=== PATIENT | male | born 1980 | race Two or more races ===

== ENCOUNTER 2020-10-23 16:25 | Emergency (ER) | payer OTHER ==
[~2020-10-23] VITALS: Ht 185.4 cm; Wt 80.7 kg
--- NOTE | 2020-10-23 17:09 | NUR ---
SEEN AND EXAMINED BY .
--- NOTE | 2020-10-23 17:36 | NUR ---
ER PHLEB AT BEDSIDE FOR BLOOD DRAW.
[2020-10-23 17:46] LABS: MONOCYTES # (AUTO) 0.6 /CMM (0.1-1.30); NEUTROPHILS # (AUTO) 5.5 /CMM (1.8-8.9)
[2020-10-23 17:49] LABS: BASOPHILS % (AUTO) 0.3 % (0.0-2.0); EOSINOPHILS % (AUTO) 1.4 % (0.0-6.0); HEMATOCRIT 43 % (39-51); HEMOGLOBIN 14.2 g/dL (13.5-17.5); LYMPHOCYTES # (AUTO) 1.6 /CMM (0.8-4.8); LYMPHOCYTES % (AUTO) 20.5 % (20.0-44.0); MEAN CORPUSCULAR HGB CONC 34 g/dl (31.0-36.0); MEAN CORPUSCULAR VOLUME 98 fL (80-96); MONOCYTES % (AUTO) 7.5 % (2.0-12.0); NEUTROPHILS % (AUTO) 70.3 % (43.0-81.0); PLATELET COUNT (AUTO) 290 /CMM (150-450); RED BLOOD CELL COUNT(AUTO) 4.31 MIL/uL (4.5-6.0); WHITE BLOOD COUNT (AUTO) 7.8 K/uL (4.3-11.0)
[2020-10-23 17:52] VITALS: BP 135/77
--- NOTE | 2020-10-23 17:54 | NUR ---
Patient came in to the er c/o +SI "i want to cut myself". On room air, breathing evenly and unlabored. Kept comfortable, will continue to monitor accordingly.
[2020-10-23 18:11] LABS: CALCIUM, SERUM 9.7 mg/dL (8.5-10.1); CARBON DIOXIDE 25 mmol/L (21-32); CHLORIDE 103 mmol/L (98-107); GLUCOSE 209 mg/dL (74-106); SODIUM SERUM 139 mmol/L (136-145); UREA NITROGEN, BLOOD 22 mg/dL (7-18)
[2020-10-23 18:13] LABS: BILIRUBIN,URINE Negative (NEGATIVE); COLOR,URINE DARK YELLOW (YELLOW); LEUKOCYTE ESTERASE ,URINE Negative (NEGATIVE); NITRITE, URINE Negative (NEGATIVE); PROTEIN,URINE >=300 mg/dl (NEGATIVE); UGLUCOSE >=1000 mg/dL (NEGATIVE); UROBILINOGEN,URINE 0.2 EU/dL (0.2)
[2020-10-23 18:25] LABS: BACTERIA,URINE None seen /HPF (None Seen); SQUAMOUS EPITHELIAL CELL,UR Few /HPF (None Seen); WBC,URINE 0-2 /HPF (0-3)
[2020-10-23 18:26] LABS: ALANINE AMINOTRANSFERASE 56 U/L (12-78); ALBUMIN 3.7 g/dL (3.4-5.0); ALCOHOL, BLOOD < 3 mg/dL (0-0); ALKALINE PHOSPHATASE 76 U/L (46-116); ASPARTATE AMINOTRANSFERASE 21 U/L (15-37); BILIRUBIN,DIRECT 0.1 mg/dL (0.0-0.2); BILIRUBIN,TOTAL 0.5 mg/dL (0.2-1.0); TOTAL PROTEIN, SERUM 7.6 g/dL (6.4-8.2)
[2020-10-23 18:28] LABS: ACETAMINOPHEN < 0 ug/ml (10-30)
[2020-10-23] MEDS ORDERED: METFORMIN 850 MG TABLET PO ONE (19:00)
[2020-10-23] MEDS ORDERED: METFORMIN 850 MG TABLET ONE (19:02)
--- NOTE | 2020-10-23 19:27 | NUR ---
CLINICAL AND FACESHEET FAXED TO [facility] FOR VOLUNTARY PSYCH ADMISSION.
--- NOTE | 2020-10-23 21:16 | NUR ---
TRANSFER INFO: PT ACCEPTED AT [facility] DEYANIRA LORENZO ACCEPTING MD ROJO PHONE NUMBER FOR REPORT PT WILL GO TO UNIT 2
--- NOTE | 2020-10-23 21:23 | NUR ---
TRAY ANDERSON FROM [id number] PT WILL BE PICKED UP FOR TRANSPORT TO [facility] ETA 1 HOUR VIA [facility].
--- NOTE | 2020-10-23 22:06 | NUR ---
BG 310, ER AWARE. WILL ORDER 6 UNITS OF INSULIN.
[2020-10-23] MEDS ORDERED: INSULIN REGULAR, HUMAN 100 UNIT/ML 10 ML VIAL ONE (22:07)
--- NOTE | 2020-10-23 22:21 | NUR ---
REPORT GIVEN TO STEFFEN DURON FOR NATY
[2020-10-23] MEDS ORDERED: INSULIN REGULAR, HUMAN 100 UNIT/ML 10 ML VIAL SQ ONE (22:30)
== END 2020-10-23 22:31 ==
LOC: ER 16:29
DX: R45.851 Suicidal ideations (principal); F31.9 Bipolar disorder, unspecified; Z91.14 Patient's other noncompliance with medication regimen; I10 Essential (primary) hypertension; Z90.49 Acquired absence of other specified parts of digestive tract; E11.9 Type 2 diabetes mellitus without complications; Z79.4 Long term (current) use of insulin; Z20.822 Contact with and (suspected) exposure to COVID-19
CPT/HCPCS: 36415; 80048; 80076; 80299; 80307; 80320; 81001; 82962; 85025; 87426; 96372; 99285; C9803; J1815; G0480

== ENCOUNTER 2020-11-02 12:21 | Emergency (ER) | payer OTHER ==
[~2020-11-02] VITALS: Ht 185.4 cm; Wt 80.7 kg
--- NOTE | 2020-11-02 12:42 | NUR ---
pt self presents to ed ambulatory w. steady gait c/o hearing voices telling him to "cut" himself. [facility] denies hi. pt is cooperative to staff. stable vitals. 1:1 sitter at bedside. awaiting md wesley.
--- NOTE | 2020-11-02 13:00 | NUR ---
dr roberson at bedsides for eval.
[2020-11-02 13:14] LABS: BILIRUBIN,URINE Negative (NEGATIVE); LEUKOCYTE ESTERASE ,URINE Negative (NEGATIVE); NITRITE, URINE Negative (NEGATIVE); PROTEIN,URINE Negative (NEGATIVE); UGLUCOSE 500 MG/DL mg/dL (NEGATIVE); UROBILINOGEN,URINE 0.2 EU/dL (0.2)
--- NOTE | 2020-11-02 13:16 | NUR ---
r and d lab technician at bedside for blood draw.
[2020-11-02 13:18] LABS: COLOR,URINE LIGHT YELLOW (YELLOW)
[2020-11-02 13:25] LABS: BASOPHILS # (AUTO) 0.1 /CMM (0.0-0.2); BASOPHILS % (AUTO) 1.2 % (0.0-2.0); EOSINOPHILS % (AUTO) 2.8 % (0.0-6.0); HEMATOCRIT 36 % (39-51); HEMOGLOBIN 12.1 g/dL (13.5-17.5); LYMPHOCYTES # (AUTO) 1.1 /CMM (0.8-4.8); LYMPHOCYTES % (AUTO) 20.1 % (20.0-44.0); MEAN CORPUSCULAR HGB CONC 34 g/dl (31.0-36.0); MEAN CORPUSCULAR VOLUME 99 fL (80-96); MONOCYTES # (AUTO) 0.4 /CMM (0.1-1.30); MONOCYTES % (AUTO) 7.4 % (2.0-12.0); NEUTROPHILS # (AUTO) 3.7 /CMM (1.8-8.9); NEUTROPHILS % (AUTO) 68.5 % (43.0-81.0); PLATELET COUNT (AUTO) 218 /CMM (150-450); RED BLOOD CELL COUNT(AUTO) 3.62 MIL/uL (4.5-6.0); WHITE BLOOD COUNT (AUTO) 5.4 K/uL (4.3-11.0)
[2020-11-02 13:37] LABS: ALANINE AMINOTRANSFERASE 25 U/L (12-78); ALBUMIN 3.1 g/dL (3.4-5.0); ALCOHOL, BLOOD < 3 mg/dL (0-0); ALKALINE PHOSPHATASE 103 U/L (46-116); ASPARTATE AMINOTRANSFERASE 21 U/L (15-37); BILIRUBIN,TOTAL 0.2 mg/dL (0.2-1.0); CALCIUM, SERUM 8.9 mg/dL (8.5-10.1); CARBON DIOXIDE 29 mmol/L (21-32); CHLORIDE 103 mmol/L (98-107); CREATININE 1.2 mg/dL (0.6-1.3); POTASSIUM 5.1 mmol/L (3.5-5.1); SODIUM SERUM 138 mmol/L (136-145); TOTAL PROTEIN, SERUM 6.4 g/dL (6.4-8.2); UREA NITROGEN, BLOOD 25 mg/dL (7-18)
[2020-11-02 13:42] LABS: GLUCOSE 359 mg/dL (74-106)
[2020-11-02 14:01] LABS: ACETAMINOPHEN 0 ug/ml (10-30)
[2020-11-02] MEDS ORDERED: INSULIN REGULAR, HUMAN 100 UNIT/ML 10 ML VIAL ONE (14:19)
[2020-11-02] MEDS ORDERED: DEXTROSE 50%-WATER 50 ML DISP.SYRIN IV PRN (14:30)
[2020-11-02] MEDS ORDERED: INSULIN REGULAR, HUMAN 100 UNIT/ML 3 ML VIAL SQ PRN (14:30)
[2020-11-02] MEDS ORDERED: BLOOD SUGAR DIAGNOSTIC 1 EACH STRIP IN SCH (15:00)
--- NOTE | 2020-11-02 16:27 | NUR ---
facesheet and clinicals faxed over to [facility].
--- NOTE | 2020-11-02 17:50 | NUR ---
REPORT GIVEN TO PHILIPPE ESTES AT [facility]. AWAITNG TRANSFER.
[2020-11-02 17:54] VITALS: BP 125/66
--- NOTE | 2020-11-02 17:59 | NUR ---
CALLED [facility] [phone] SPOKE TO LA. BLS TRANSFER ETA IS 8PM.
--- NOTE | 2020-11-02 19:21 | NUR ---
TRANSPORTED TO [facility] IN STABLE CONDITION.
== END 2020-11-02 19:24 ==
LOC: ER 12:24
DX: F29 Unspecified psychosis not due to a substance or known physiological condition (principal); E11.9 Type 2 diabetes mellitus without complications; Z79.4 Long term (current) use of insulin; Z20.822 Contact with and (suspected) exposure to COVID-19
CPT/HCPCS: 36415; 80048; 80076; 80299; 80307; 80320; 81003; 82962; 85025; 87426; 96372; 99285; C9803; J1815 ×2; G0480

== ENCOUNTER 2020-11-09 09:04 | Emergency (ER) | payer OTHER ==
[~2020-11-09] VITALS: Ht 188 cm; Wt 97.5 kg
--- NOTE | 2020-11-09 09:23 | NUR ---
BIBSELF FOR SI, -HI. " I'M HEARING VOICES TO CUT MY WRIST & I RAN OUT OF MEDS ". PT AAOX4, VSS. RR EVEN & UNLABORED. DENIES CP, SOB, DIZZINESS, N/V AT THIS TIME. PT SEEN & EVAL'D BY DR. VELA. SITTER AT & WILL CONT TO MONITOR.
[2020-11-09 09:29] LABS: BASOPHILS # (AUTO) 0.1 /CMM (0.0-0.2); BASOPHILS % (AUTO) 0.5 % (0.0-2.0); EOSINOPHILS % (AUTO) 2.2 % (0.0-6.0); HEMATOCRIT 39 % (39-51); HEMOGLOBIN 12.6 g/dL (13.5-17.5); LYMPHOCYTES # (AUTO) 1.8 /CMM (0.8-4.8); LYMPHOCYTES % (AUTO) 18.5 % (20.0-44.0); MEAN CORPUSCULAR HGB CONC 33 g/dl (31.0-36.0); MEAN CORPUSCULAR VOLUME 100 fL (80-96); MONOCYTES # (AUTO) 0.7 /CMM (0.1-1.30); MONOCYTES % (AUTO) 7.4 % (2.0-12.0); NEUTROPHILS # (AUTO) 6.8 /CMM (1.8-8.9); NEUTROPHILS % (AUTO) 71.4 % (43.0-81.0); PLATELET COUNT (AUTO) 213 /CMM (150-450); RED BLOOD CELL COUNT(AUTO) 3.87 MIL/uL (4.5-6.0); WHITE BLOOD COUNT (AUTO) 9.6 K/uL (4.3-11.0)
[2020-11-09 10:32] LABS: BILIRUBIN,URINE Negative (NEGATIVE); COLOR,URINE YELLOW (YELLOW); LEUKOCYTE ESTERASE ,URINE Negative (NEGATIVE); NITRITE, URINE Negative (NEGATIVE); PROTEIN,URINE Negative (NEGATIVE); UGLUCOSE >=1000 mg/dL (NEGATIVE); UROBILINOGEN,URINE 0.2 EU/dL (0.2)
[2020-11-09 10:34] LABS: BACTERIA,URINE Rare /HPF (None Seen); RBC,URINE 0-2 /HPF (0-2); SQUAMOUS EPITHELIAL CELL,UR Rare /HPF (None Seen); WBC,URINE 0-2 /HPF (0-3)
[2020-11-09 11:27] LABS: ALANINE AMINOTRANSFERASE 36 U/L (12-78); ALBUMIN 3.3 g/dL (3.4-5.0); ALCOHOL, BLOOD < 3 mg/dL (0-0); ALKALINE PHOSPHATASE 132 U/L (46-116); ASPARTATE AMINOTRANSFERASE 22 U/L (15-37); BILIRUBIN,DIRECT 0.1 mg/dL (0.0-0.2); BILIRUBIN,TOTAL 0.2 mg/dL (0.2-1.0); CARBON DIOXIDE 25 mmol/L (21-32); CHLORIDE 103 mmol/L (98-107); CREATININE 1.2 mg/dL (0.6-1.3); GLUCOSE 275 mg/dL (74-106); POTASSIUM 5.3 mmol/L (3.5-5.1); SODIUM SERUM 137 mmol/L (136-145); TOTAL PROTEIN, SERUM 6.7 g/dL (6.4-8.2); UREA NITROGEN, BLOOD 37 mg/dL (7-18)
[2020-11-09 11:31] LABS: ACETAMINOPHEN < 10 ug/ml (10-30)
--- NOTE | 2020-11-09 12:28 | NUR ---
PT SITTING UP, WATCHING TV. CALM & COOPERATIVE, NAD NOTED AT THIS TIME. WILL CONT TO MONITOR. SITTER AT BS.
[2020-11-09] MEDS ORDERED: QUETIAPINE FUMARATE 100 MG TABLET PO STA (13:00)
[2020-11-09] MEDS ORDERED: INSULIN REGULAR, HUMAN 100 UNIT/ML 10 ML VIAL ONE (13:24)
[2020-11-09] MEDS ORDERED: INSULIN REGULAR, HUMAN 100 UNIT/ML 10 ML VIAL SQ ONE (13:30)
--- NOTE | 2020-11-09 13:34 | NUR ---
PT WAS PROVIDED WITH A MEAL.
--- NOTE | 2020-11-09 14:45 | NUR ---
FAXED FACESHEET AND CLINICALS TO [facility]
--- NOTE | 2020-11-09 14:51 | NUR ---
"Judi Alvarez SS Consult: SS Consult requested for SI w/plan. The pt. is a 40-year old male. SW met with pt. bedside. The pt. was sleeping but rousable to verbal cues. Pt. is alert & oriented x 4 and not making appropriate eye contact (eyes closed). Patient in drowsy. The pt. appears unkempt and is malodorous. Pt. stated that he has been experiencing homelessness for the past 2 months. Per pt. he has been staying on the streets Pt. is ambulatory. Pt. stated he received food stamps and no other financial assistance. Patient denies using any drugs or ETOH. Pt. tested positive for Cannabinoids. Per pt. his support system includes his cousin, Rashard Byrne [phone]. CATHY explored pt.s Hx. of mental health. Pt. stated that he has never been diagnosed by a psychiatrist. Per patient he has taken Haldol, Buspar at previous voluntary psychiatric placements. However, pt. stated that he is currently experiencing visual hallucination: seeing people following him. Per pt. he is experiencing auditory hallucinations: hearing voices telling him to kill self. Pt. admits to SI w/plan to cut myself. Pt. admits HI: having thoughts of hurting others. Pt. with fair insight & poor judgement. CATHY offered pt. voluntary psychiatric treatment and pt. was agreeable. Plan: CATHY referred pt. to [facility] [[facility] [place] [address] ] for inpatient psychiatric treatment. CATHY faxed clinicals to FAX: [phone]. COVID test pending and will be faxed when available. Patient signed homeless waiver & it was placed in the pt.s chart. CATHY provided pt. with the following homeless resources & pt. was agreeable: Substance Abuse resources provided included: [facility] Substance Abuse Self-Helpline ([facility]) ; CRI -HELP [address] [facility]. [place] [id number] ; [address] [address] ; [facility] [address] [facility]. [place] [phone] ; [facility] [address] [facility] [address] ; [facility] Treatment Centers [address] [facility] [address] ; [facility] [address] [facility] [phone] ; [facility] Substance Abuse Helpline(S[facility] ; [facility] Family Counseling ; [facility]; [facility]; Cri-Help [place]; [facility] Shimon Tanamaude; [place]; [facility] [place]; [facility] [place]; [facility], [facility]. [place]; Alcoholics Anonymous -SFV; Uh-Qjbg-Ggocfcj ; Marijuana Anonymous -SFV; Narcotics Anonymous www.na.org; Year-round shelters: [facility] [address] [place] [address] ; [facility] [address] [place] [address]; [facility] [facility] Hizlgka[address] [facility] [address] Winter Shelters: Yao Sánchez Provider: [facility] [place] Address: [address], [address] # of Beds: 47 Population Served: Coed SPA 6 | [facility] Nafisa Leiva Princess Provider: Home at Last Address: [address] [facility], [address] # of Beds: 66 Population Served: [facility] Shavon Moore Provider: First to Serve Address: [address] [facility], [address] # of Beds: 56 Population Served: Lynnette Silas [place] Provider: /[facility] Address: [address] [facility], [address] # of Beds: 49 Population Served: [facility] SPA 8 | [facility] Provider: First to Serve Address: [address] [facility], [address] # of Beds: 37 Population Served: [facility] Hygiene: [facility]: [address] [facility] ; [facility] [address] [facility] ; [facility] 8780 [facility] . Food Resources: [facility] at [facility]- [address] [facility]; Meet Each Need with Dignity ([facility]) [address] [facility]; [facility] Food Pantry 4321 [facility]; [facility] [address] 8559 [facility]. Mental Health resources provided: [facility] [address] [place], [place] [phone] ; [facility] [address] [facility] [address], [place] [address] ; Sandra Mcpherson Replaced By [facility] [address] [place] [address] ; [facility] [address] [place], [place] [phone] Healthcare Clinics: [facility] [address] [facility], [address] [place]. [place] ; [facility] [address] [facility] [address] [place] [address]; [facility] [address] [address] [facility] [place] [address] [phone]) [phone] Counseling--Outpatient [facility] [address] [place], [place] [address] (Specializes in in-depth psychotherapy for emotional distress: anxiety, depression, interpersonal conflicts, life transitions, childhood abuse) [facility] [address] [place] [address] (Assist with solving problem marital difficulties, separation & divorce, aging parents, & grief, chronic & terminal illness) [facility] [address] [place] [address] (Deal with loss & grief, anxiety, marital difficulties) Homebound/Mental Health Services [address] [facility] [address] [place] [address] (Provide in-home mental services to people who are incapable of leaving their homes) Organization for Needs of the Elderly Senior Service/Resource Center [address] [place] [address] [facility] [address] [place] [address] PSYCHIATRIC OUTPATIENT SERVICES [facility] Partial Hospitalization and Intensive Outpatient Program (Managed Care and [place] Only)[address]. [facility] [phone] [facility] Partial Hospitalization and Outpatient Zxitwca[address] [place], [place] [phone] [facility] Partial Hospitalization and Outpatient Gteotxs9163 [facility]. [place], [place] [phone] [facility] Mental Health [place] Odr[address] [facility] [address] [place], [place] [phone] [facility] Partial Hospitalization and Outpatient Bxftrra18505 [facility] Shimon EisenbergLITTLE [place], [phone] "
--- NOTE | 2020-11-09 15:11 | NUR ---
CATHY received call from Florecita [phone] from [facility] asking for new lab as pt.'s Glucose levels must be below 250 to be accepted to [facility]. Noted. CATHY informed OLIVERIO Dong in ED. Updated Glucose levels and COVID-19 test results should be faxed to FAX#[phone] & [phone].
--- NOTE | 2020-11-09 17:18 | NUR ---
PT ACCEPTED TO [facility]. DR. ZAMAN AND DR. CARDONA. [phone].
--- NOTE | 2020-11-09 18:12 | NUR ---
CALLED [facility] FOR TRANSPORT TO [facility]. ETA [phone].
--- NOTE | 2020-11-09 18:53 | NUR ---
REPORT GIVEN TO ALONSO AT [place]. PT AWAITING TRANSPORT AMBULANCE.
[2020-11-09 19:30] VITALS: BP 131/66
--- NOTE | 2020-11-09 19:46 | NUR ---
[facility] IN FACILITY, REPORT GIVEN TO AMB STAFF. PAPERWORK GIVEN. ALL BELONGINGS WITH TRANSPORT.
--- NOTE | 2020-11-09 19:56 | NUR ---
pt left via [facility]. left in stable condition. vss. not in any distress
== END 2020-11-09 19:57 ==
LOC: ER 09:12
DX: F29 Unspecified psychosis not due to a substance or known physiological condition (principal); Z91.14 Patient's other noncompliance with medication regimen; R45.851 Suicidal ideations; F12.10 Cannabis abuse, uncomplicated; E11.65 Type 2 diabetes mellitus with hyperglycemia; E87.5 Hyperkalemia; Z20.822 Contact with and (suspected) exposure to COVID-19
CPT/HCPCS: 36415; 80048; 80076; 80299; 80307; 80320; 81001; 82962; 85025; 87426; 96372; 99285; C9803; J1815; G0480

== ENCOUNTER 2021-10-03 09:50 | Emergency (ER) | payer OTHER ==
[~2021-10-03] VITALS: Ht 188 cm; Wt 86.2 kg
--- NOTE | 2021-10-03 10:05 | NUR ---
TO ER BED 18, DEPRESSED, FEELING SUICIDAL, +PLAN TO "CUT SELF" WANTS VOL PSYCH ADMIT, AAOX3, BREATHING EVEN AND NON LABORED, REQUESTED FOR FOOD, AWAITING MD GUADALUPE
--- NOTE | 2021-10-03 10:30 | NUR ---
URINE COLLECTED AND SENT TO LAB
--- NOTE | 2021-10-03 10:31 | NUR ---
COVID SWAB DONE AND SENT TO LAB
--- NOTE | 2021-10-03 11:05 | NUR ---
LABORER WRECKING AND SALVAGING AT BEDSIDE FOR BLOOD DRAW
[2021-10-03 11:13] LABS: BASOPHILS % (AUTO) 0.5 % (0.0-2.0); EOSINOPHILS % (AUTO) 2.2 % (0.0-6.0); HEMATOCRIT 44 % (39-51); HEMOGLOBIN 14.8 g/dL (13.5-17.5); LYMPHOCYTES # (AUTO) 1.5 K/uL (0.8-4.8); LYMPHOCYTES % (AUTO) 22.4 % (20.0-44.0); MEAN CORPUSCULAR HGB CONC 34 g/dl (31.0-36.0); MEAN CORPUSCULAR VOLUME 98 fL (80-96); MONOCYTES # (AUTO) 0.4 K/uL (0.1-1.30); MONOCYTES % (AUTO) 6.1 % (2.0-12.0); NEUTROPHILS # (AUTO) 4.5 K/uL (1.8-8.9); NEUTROPHILS % (AUTO) 68.8 % (43.0-81.0); PLATELET COUNT (AUTO) 278 K/uL (150-450); RED BLOOD CELL COUNT(AUTO) 4.52 MIL/uL (4.5-6.0); WHITE BLOOD COUNT (AUTO) 6.5 K/uL (4.3-11.0)
[2021-10-03] MEDS ORDERED: LORAZEPAM 1 MG TABLET ONE (11:21)
[2021-10-03 11:27] LABS: ALANINE AMINOTRANSFERASE 45 U/L (12-78); ALBUMIN 3.5 g/dL (3.4-5.0); ALCOHOL, BLOOD < 3 mg/dL (0-0); ALKALINE PHOSPHATASE 169 U/L (46-116); ASPARTATE AMINOTRANSFERASE 12 U/L (15-37); BILIRUBIN,DIRECT 0.1 mg/dL (0.0-0.2); BILIRUBIN,TOTAL 0.3 mg/dL (0.2-1.0); CALCIUM, SERUM 8.8 mg/dL (8.5-10.1); CARBON DIOXIDE 28 mmol/L (21-32); CHLORIDE 94 mmol/L (98-107); CREATININE 1.1 mg/dL (0.6-1.3); POTASSIUM 5.1 mmol/L (3.5-5.1); SODIUM SERUM 130 mmol/L (136-145); TOTAL PROTEIN, SERUM 7.3 g/dL (6.4-8.2); UREA NITROGEN, BLOOD 14 mg/dL (7-18)
[2021-10-03] MEDS ORDERED: LORAZEPAM 1 MG TABLET PO ONE (11:30)
[2021-10-03 12:01] LABS: BILIRUBIN,URINE NEGATIVE (NEGATIVE); COLOR,URINE YELLOW (YELLOW); LEUKOCYTE ESTERASE ,URINE NEGATIVE (NEGATIVE); NITRITE, URINE NEGATIVE (NEGATIVE); PROTEIN,URINE 30 mg/dl (NEGATIVE); UGLUCOSE >=1000 mg/dL (NEGATIVE); UROBILINOGEN,URINE 0.2 EU/dL (0.2)
[2021-10-03 12:14] LABS: ACETAMINOPHEN 0 ug/ml (10-30); GLUCOSE 642 mg/dL (74-106)
[2021-10-03] MEDS ORDERED: IV NS 0.9% 1,000 ML BAG IV ONE (12:30)
[2021-10-03] MEDS: INSULIN LISPRO/ASPART 100 UNIT/ML CARTRIDGE SQ SCH ×2 (12:57→18:00)
[2021-10-03 13:11] LABS: BACTERIA,URINE None seen /HPF (None Seen); SQUAMOUS EPITHELIAL CELL,UR None Seen /HPF (None Seen); WBC,URINE 0-2 /HPF (0-3)
--- NOTE | 2021-10-03 15:32 | NUR ---
BLOOD SUGAR READING IS 418. DR CARBALLO AWARE.
--- NOTE | 2021-10-03 17:32 | NUR ---
BLOOD SUGAR READING 95. THE PATIENT IS SERVED WITH DINNER.
--- NOTE | 2021-10-03 18:56 | NUR ---
FAXED CLINICALS TO [facility].
--- NOTE | 2021-10-03 22:37 | NUR ---
FACESHEET AND CLINICALS REFAXED TO [facility].
[2021-10-04] MEDS ORDERED: LORAZEPAM 1 MG TABLET ONE (02:10)
[2021-10-04] MEDS ORDERED: LORAZEPAM 1 MG TABLET PO ONE (02:30)
--- NOTE | 2021-10-04 03:34 | NUR ---
PT ACCEPTED TO [facility] BY DR ROJO. # FOR REPORT [phone]
--- NOTE | 2021-10-04 03:36 | NUR ---
[facility] ETA 20-30 MINUTES.
--- NOTE | 2021-10-04 04:14 | NUR ---
REPORT GIVEN TO EMS AT BEDSIDE.
--- NOTE | 2021-10-04 04:42 | NUR ---
PATIENT TRANSFERRED TO [facility] VIA AMBULANCE IN STABLE CONDITION/
[2021-10-04 04:43] VITALS: BP 139/60
== END 2021-10-04 04:44 ==
LOC: ER 09:57
DX: R45.851 Suicidal ideations (principal); F31.9 Bipolar disorder, unspecified; E11.65 Type 2 diabetes mellitus with hyperglycemia; Z79.4 Long term (current) use of insulin; I10 Essential (primary) hypertension; Z59.00 Homelessness unspecified
CPT/HCPCS: 36415; 80048; 80076; 80143; 80307; 80320; 81001; 82962 ×4; 85025; 87426; 96360; 99285; C9803; J7030; G0480; J1815

== ENCOUNTER 2021-12-07 13:41 | Emergency (ER) | payer OTHER ==
[~2021-12-07] VITALS: Ht 188 cm; Wt 86.2 kg
[2021-12-07 14:24] VITALS: BP 103/72
--- NOTE | 2021-12-07 15:40 | NUR ---
SS Note: Pt. Is a 41-year-old male who demonstrates adequate insight to the reason for hospitalization. Per pt., he came in for suicidal ideation with a plan of shooting himself. Pt. was oriented x3, alert, and cooperative. During interview, pt. was capable of following directions and appeared unkempt. Pt.'s speech was at a normal rate and pt.'s mood was elevated. Pt. reported no hx of mental health, substance abuse, denies homicidal ideation. Pt. denies auditory hallucinations, visual hallucinations, paranoia, or delusions. SW explored pt.'s living situation. Per pt., he is homeless. Pt. expressed that he wants to go to [facility]. Plan: Please fax clinicals to [facility] once pt. is medically cleared.
[2021-12-07 15:42] LABS: BASOPHILS # (AUTO) 0.1 K/uL (0.0-0.2); BASOPHILS % (AUTO) 0.7 % (0.0-2.0); EOSINOPHILS % (AUTO) 1.4 % (0.0-6.0); HEMATOCRIT 44 % (39-51); HEMOGLOBIN 15.2 g/dL (13.5-17.5); LYMPHOCYTES # (AUTO) 2.5 K/uL (0.8-4.8); LYMPHOCYTES % (AUTO) 27.4 % (20.0-44.0); MEAN CORPUSCULAR HGB CONC 35 g/dl (31.0-36.0); MEAN CORPUSCULAR VOLUME 93 fL (80-96); MONOCYTES # (AUTO) 0.7 K/uL (0.1-1.30); MONOCYTES % (AUTO) 7.4 % (2.0-12.0); NEUTROPHILS # (AUTO) 5.8 K/uL (1.8-8.9); NEUTROPHILS % (AUTO) 63.1 % (43.0-81.0); PLATELET COUNT (AUTO) 285 K/uL (150-450); RED BLOOD CELL COUNT(AUTO) 4.69 MIL/uL (4.5-6.0); WHITE BLOOD COUNT (AUTO) 9.2 K/uL (4.3-11.0)
[2021-12-07 15:45] LABS: BILIRUBIN,URINE SMALL (NEGATIVE); COLOR,URINE YELLOW (YELLOW); LEUKOCYTE ESTERASE ,URINE NEGATIVE (NEGATIVE); NITRITE, URINE NEGATIVE (NEGATIVE); PROTEIN,URINE 100 mg/dl (NEGATIVE); UGLUCOSE >=1000 mg/dL (NEGATIVE); UROBILINOGEN,URINE 0.2 EU/dL (0.2)
[2021-12-07 16:27] LABS: BACTERIA,URINE Few /HPF (None Seen); RBC,URINE 0-2 /HPF (0-2); SQUAMOUS EPITHELIAL CELL,UR Rare /HPF (None Seen); WBC,URINE 0-2 /HPF (0-3)
[2021-12-07 16:30] LABS: ACETAMINOPHEN 0 ug/ml (10-30); ALANINE AMINOTRANSFERASE 22 U/L (12-78); ALBUMIN 3.4 g/dL (3.4-5.0); ALCOHOL, BLOOD < 3 mg/dL (0-0); ALKALINE PHOSPHATASE 85 U/L (46-116); ASPARTATE AMINOTRANSFERASE 18 U/L (15-37); BILIRUBIN,DIRECT 0.2 mg/dL (0.0-0.2); BILIRUBIN,TOTAL 0.8 mg/dL (0.2-1.0); CALCIUM, SERUM 9.3 mg/dL (8.5-10.1); CARBON DIOXIDE 23 mmol/L (21-32); CHLORIDE 102 mmol/L (98-107); GLUCOSE 161 mg/dL (74-106); POTASSIUM 3.8 mmol/L (3.5-5.1); SODIUM SERUM 135 mmol/L (136-145); TOTAL PROTEIN, SERUM 6.8 g/dL (6.4-8.2); UREA NITROGEN, BLOOD 20 mg/dL (7-18)
--- NOTE | 2021-12-07 22:48 | NUR ---
PATIENT ACCEPTED UNDER DR ZAMAN AT [facility] REPORT [phone]
--- NOTE | 2021-12-07 23:48 | NUR ---
[facility] ETA 2 HOURS
--- NOTE | 2021-12-07 23:49 | NUR ---
REPORT GIVEN NURSE ELDON SERRATO MOBILE
--- NOTE | 2021-12-08 00:53 | NUR ---
REPORT GIVEN TO EMS AT BEDSIDE
--- NOTE | 2021-12-08 01:00 | NUR ---
pt left on gurney with 2 emt -n stabkle condition. nad noted
== END 2021-12-08 01:56 ==
LOC: ER 13:44
DX: R45.851 Suicidal ideations (principal); F31.9 Bipolar disorder, unspecified; E11.9 Type 2 diabetes mellitus without complications; Z79.4 Long term (current) use of insulin; I10 Essential (primary) hypertension
CPT/HCPCS: 36415; 80048; 80076; 80143; 80307; 80320; 81001; 85025; 87426; 99285; C9803; G0480

== ENCOUNTER 2021-12-18 00:12 | Emergency (ER) | payer OTHER ==
[~2021-12-18] VITALS: Ht 188 cm; Wt 81.6 kg
[2021-12-18] MEDS ORDERED: CEPH500C2 PO (00:24)
[2021-12-18] MEDS ORDERED: KETOROLAC TROMETHAMINE INJ 60 MG/2 ML VIAL IM ONE ×2 (00:30→00:37)
[2021-12-18] MEDS ORDERED: CEPHALEXIN MONOHYDRATE 500 MG CAPSULE PO ONE ×2 (00:30→00:37)
[2021-12-18 00:51] LABS: BASOPHILS # (AUTO) 0.1 K/uL (0.0-0.2); BASOPHILS % (AUTO) 0.6 % (0.0-2.0); EOSINOPHILS % (AUTO) 1.1 % (0.0-6.0); HEMATOCRIT 42 % (39-51); HEMOGLOBIN 14.5 g/dL (13.5-17.5); LYMPHOCYTES # (AUTO) 2.2 K/uL (0.8-4.8); LYMPHOCYTES % (AUTO) 25.7 % (20.0-44.0); MEAN CORPUSCULAR HGB CONC 34 g/dl (31.0-36.0); MEAN CORPUSCULAR VOLUME 95 fL (80-96); MONOCYTES # (AUTO) 0.5 K/uL (0.1-1.30); NEUTROPHILS # (AUTO) 5.8 K/uL (1.8-8.9); NEUTROPHILS % (AUTO) 66.6 % (43.0-81.0); PLATELET COUNT (AUTO) 249 K/uL (150-450); RED BLOOD CELL COUNT(AUTO) 4.45 MIL/uL (4.5-6.0); WHITE BLOOD COUNT (AUTO) 8.7 K/uL (4.3-11.0)
[2021-12-18 01:06] LABS: BILIRUBIN,URINE NEGATIVE (NEGATIVE); COLOR,URINE YELLOW (YELLOW); LEUKOCYTE ESTERASE ,URINE NEGATIVE (NEGATIVE); NITRITE, URINE NEGATIVE (NEGATIVE); PROTEIN,URINE 100 mg/dl (NEGATIVE); UGLUCOSE >=1000 mg/dL (NEGATIVE)
[2021-12-18 01:08] LABS: ALANINE AMINOTRANSFERASE 61 U/L (12-78); ALBUMIN 3.2 g/dL (3.4-5.0); ALKALINE PHOSPHATASE 188 U/L (46-116); ASPARTATE AMINOTRANSFERASE 21 U/L (15-37); BILIRUBIN,DIRECT 0.1 mg/dL (0.0-0.2); BILIRUBIN,TOTAL 0.4 mg/dL (0.2-1.0); CARBON DIOXIDE 29 mmol/L (21-32); CHLORIDE 99 mmol/L (98-107); CREATININE 1.2 mg/dL (0.6-1.3); POTASSIUM 4.1 mmol/L (3.5-5.1); SODIUM SERUM 133 mmol/L (136-145); UREA NITROGEN, BLOOD 14 mg/dL (7-18)
[2021-12-18 01:16] LABS: ACETAMINOPHEN 0 ug/ml (10-30); ALCOHOL, BLOOD < 3 mg/dL (0-0)
[2021-12-18 01:17] LABS: GLUCOSE 609 mg/dL (74-106)
[2021-12-18] MEDS ORDERED: INSULIN REGULAR, HUMAN 100 UNIT/ML 10 ML VIAL IV ONE (01:30)
[2021-12-18] MEDS ORDERED: INSULIN REGULAR, HUMAN 100 UNIT/ML 10 ML VIAL SQ ONE (01:30)
[2021-12-18] MEDS ORDERED: INSULIN REGULAR, HUMAN 100 UNIT/ML 10 ML VIAL ONE (01:32)
[2021-12-18] MEDS: IV NS 0.9% 1,000 ML IV PRN ×4 (01:34→01:42)
[2021-12-18 04:45] VITALS: BP 113/64
== END 2021-12-18 08:28 | disposition home or self-care (01) ==
LOC: ER 00:16
DX: R45.851 Suicidal ideations (principal); F19.10 Other psychoactive substance abuse, uncomplicated; F31.9 Bipolar disorder, unspecified; L08.9 Local infection of the skin and subcutaneous tissue, unspecified; E11.65 Type 2 diabetes mellitus with hyperglycemia; Z79.4 Long term (current) use of insulin; I10 Essential (primary) hypertension; F17.200 Nicotine dependence, unspecified, uncomplicated; Z20.822 Contact with and (suspected) exposure to COVID-19
CPT/HCPCS: 36415; 80048; 80076; 80143; 80307; 80320; 81003; 82962; 85025; 87426; 96361; 96372 ×2; 96374; 99285; C9803; J1815; J1885; J7030; G0480

== ENCOUNTER 2022-02-03 03:41 | Emergency (ER) | payer OTHER ==
[~2022-02-03] VITALS: Ht 182.9 cm; Wt 74.8 kg
[~2022-02-03 03:41] MED LIST: CEPH500C2 PO
--- NOTE | 2022-02-03 04:47 | NUR ---
BIBS FOR S/I WITH PLAN TO CUT HIMSELF. REQUESTING VOLUNTARY ADMISSION TO [facility]. PATIENT ALERT AND ORIETNED X3. AMBULATORY WITH NO LABORED BREATHING IN BED 19 BELONGINGS TAKEN AND PLACED IN LOCKER. AWAITING MD GUADALUPE.
--- NOTE | 2022-02-03 04:51 | NUR ---
URINE COLLECTED AND SENT TO LAB
--- NOTE | 2022-02-03 04:51 | NUR ---
COVID SWAB DONE AND SENT TO LAB
[2022-02-03 05:54] LABS: BILIRUBIN,URINE NEGATIVE (NEGATIVE); COLOR,URINE YELLOW (YELLOW); LEUKOCYTE ESTERASE ,URINE NEGATIVE (NEGATIVE); NITRITE, URINE NEGATIVE (NEGATIVE); PROTEIN,URINE NEGATIVE (NEGATIVE); UGLUCOSE >=1000 mg/dL (NEGATIVE); UROBILINOGEN,URINE 0.2 EU/dL (0.2)
[2022-02-03 05:56] LABS: BASOPHILS % (AUTO) 0.3 % (0.0-2.0); EOSINOPHILS % (AUTO) 1.7 % (0.0-6.0); HEMATOCRIT 41 % (39-51); LYMPHOCYTES # (AUTO) 2.3 K/uL (0.8-4.8); LYMPHOCYTES % (AUTO) 20.6 % (20.0-44.0); MEAN CORPUSCULAR HGB CONC 35 g/dl (31.0-36.0); MEAN CORPUSCULAR VOLUME 95 fL (80-96); MONOCYTES # (AUTO) 0.4 K/uL (0.1-1.30); NEUTROPHILS # (AUTO) 8.2 K/uL (1.8-8.9); NEUTROPHILS % (AUTO) 73.4 % (43.0-81.0); PLATELET COUNT (AUTO) 243 K/uL (150-450); RED BLOOD CELL COUNT(AUTO) 4.27 MIL/uL (4.5-6.0); WHITE BLOOD COUNT (AUTO) 11.2 K/uL (4.3-11.0)
[2022-02-03] MEDS ORDERED: LORAZEPAM 1 MG TABLET PO ONE (06:00)
[2022-02-03 06:02] LABS: ALANINE AMINOTRANSFERASE 30 U/L (12-78); ALBUMIN 3.2 g/dL (3.4-5.0); ALCOHOL, BLOOD < 3 mg/dL (0-0); ALKALINE PHOSPHATASE 177 U/L (46-116); ASPARTATE AMINOTRANSFERASE 12 U/L (15-37); BILIRUBIN,DIRECT 0.1 mg/dL (0.0-0.2); BILIRUBIN,TOTAL 0.2 mg/dL (0.2-1.0); CARBON DIOXIDE 27 mmol/L (21-32); CHLORIDE 101 mmol/L (98-107); POTASSIUM 4.1 mmol/L (3.5-5.1); SODIUM SERUM 135 mmol/L (136-145); TOTAL PROTEIN, SERUM 6.4 g/dL (6.4-8.2); UREA NITROGEN, BLOOD 14 mg/dL (7-18)
[2022-02-03 06:03] LABS: ACETAMINOPHEN 0 ug/ml (10-30)
[2022-02-03 06:04] LABS: GLUCOSE > 500 mg/dL (74-106)
[2022-02-03] MEDS ORDERED: LORAZEPAM 1 MG TABLET ONE (06:20)
[2022-02-03 06:29] LABS: MAGNESIUM 1.8 mg/dL (1.8-2.4); PHOSPHORUS 3.8 mg/dL (2.5-4.9)
[2022-02-03] MEDS ORDERED: IV NS 0.9% 1,000 ML BAG IV ONE ×2 (06:30)
[2022-02-03] MEDS ORDERED: METFORMIN 500 MG TABLET PO ONE (06:30)
[2022-02-03] MEDS ORDERED: INSULIN REGULAR, HUMAN 100 UNIT/ML 10 ML VIAL IV ONE (06:30)
--- NOTE | 2022-02-03 06:30 | NUR ---
ACCUCHECK 498mg/dl, DR GLASGOW MADE AWARE
--- NOTE | 2022-02-03 06:31 | NUR ---
IV CANNULA G20 INSERTED ON LEFT FA. 1L NS BOLUS STARTED.
[2022-02-03] MEDS ORDERED: METFORMIN 500 MG TABLET ONE (06:35)
[2022-02-03 06:46] LABS: BACTERIA,URINE None seen /HPF (None Seen); RBC,URINE 0-2 /HPF (0-2); SQUAMOUS EPITHELIAL CELL,UR None Seen /HPF (None Seen); WBC,URINE 0-2 /HPF (0-3)
--- NOTE | 2022-02-03 07:15 | NUR ---
REPORT GIVEN OLIVERIO KAUR
[2022-02-03 08:15] LABS: MAGNESIUM 1.7 mg/dL (1.8-2.4); PHOSPHORUS 2.7 mg/dL (2.5-4.9)
--- NOTE | 2022-02-03 08:15 | NUR ---
BS 135, MD AWARE, BREAKFAST TRAY GIVEN
--- NOTE | 2022-02-03 09:15 | NUR ---
[facility]ED CL[facility]ALS TO [facility].
[2022-02-03 11:04] LABS: MAGNESIUM 1.6 mg/dL (1.8-2.4); PHOSPHORUS 3.6 mg/dL (2.5-4.9)
--- NOTE | 2022-02-03 11:28 | NUR ---
CALLED INTAKE FOR UPDATE, AWAITING FEEDBACK FROM RIVERA BAZZI.
--- NOTE | 2022-02-03 11:52 | NUR ---
GIVEN LUNCH, TOL. ROGERS
--- NOTE | 2022-02-03 12:45 | NUR ---
FRANK [facility]EN[facility]. PT ACCEPTED TO [facility] UNDER DR. ROJO PLEASE CALL [phone] FOR REPORT.
--- NOTE | 2022-02-03 12:52 | NUR ---
[facility] CALLED FOR TRANSPORT ETA 60 MINS PER CANDIDA.
--- NOTE | 2022-02-03 13:00 | NUR ---
REPORT GIVEN TO FAWN FOR NATY
--- NOTE | 2022-02-03 13:04 | NUR ---
CALLED [facility] PLACED ON WILL CALL.
--- NOTE | 2022-02-03 14:31 | NUR ---
FAXED INTAKE COVID RESULT.
--- NOTE | 2022-02-03 16:03 | NUR ---
EMT AT BEDSIDE TO PICKUP PATIENT.
[2022-02-03 16:06] VITALS: BP 124/62
--- NOTE | 2022-02-03 16:06 | NUR ---
PT NESTOR [facility]ORTED TO [facility] ST[facility]
== END 2022-02-03 16:06 ==
LOC: ER 03:49
DX: F31.9 Bipolar disorder, unspecified (principal); E11.65 Type 2 diabetes mellitus with hyperglycemia; F17.210 Nicotine dependence, cigarettes, uncomplicated; I10 Essential (primary) hypertension; Z91.14 Patient's other noncompliance with medication regimen; F15.10 Other stimulant abuse, uncomplicated; Z59.00 Homelessness unspecified; R74.8 Abnormal levels of other serum enzymes; R45.851 Suicidal ideations; Z20.822 Contact with and (suspected) exposure to COVID-19
CPT/HCPCS: 36415; 80048; 80076; 80143; 80307; 80320; 81001; 82962 ×2; 83735 ×3; 84100 ×3; 85025; 87426; 96361; 96374; 99285; 99406; C9803; J7030 ×2; G0480; J1815

== ENCOUNTER 2022-02-07 08:24 | Emergency (ER) | payer OTHER ==
[~2022-02-07] VITALS: Ht 188 cm; Wt 79.4 kg
--- NOTE | 2022-02-07 09:04 | NUR ---
CARY FROM [facility] FOR DIZZINESS AND GEN WEAKNESS. THE PATIENT IS ALERT AND ORIENTED X4. IN ROOM AIR AND DENIES SOB. RESPIRATION REGULAR AND UNLABORED. ATTACHED THE PATIENT TO THE MONITOR. WILL CONTINUE TO MONITOR THE PATIENT.
[2022-02-07] MEDS: IV NS 0.9% 1,000 ML BAG IV ONE (09:06)
[2022-02-07 09:10] LABS: BASOPHILS % (AUTO) 0.4 % (0.0-2.0); HEMATOCRIT 45 % (39-51); HEMOGLOBIN 15.6 g/dL (13.5-17.5); LYMPHOCYTES # (AUTO) 1.8 K/uL (0.8-4.8); LYMPHOCYTES % (AUTO) 23.1 % (20.0-44.0); MEAN CORPUSCULAR HGB CONC 35 g/dl (31.0-36.0); MEAN CORPUSCULAR VOLUME 95 fL (80-96); MONOCYTES # (AUTO) 0.5 K/uL (0.1-1.30); MONOCYTES % (AUTO) 6.1 % (2.0-12.0); NEUTROPHILS # (AUTO) 5.2 K/uL (1.8-8.9); NEUTROPHILS % (AUTO) 68.4 % (43.0-81.0); PLATELET COUNT (AUTO) 259 K/uL (150-450); RED BLOOD CELL COUNT(AUTO) 4.73 MIL/uL (4.5-6.0); WHITE BLOOD COUNT (AUTO) 7.6 K/uL (4.3-11.0)
--- NOTE | 2022-02-07 09:10 | NUR ---
FERMENTING CELLARS SUPERVISOR AT BEDSIDE
[2022-02-07] MEDS ORDERED: KETOROLAC TROMETHAMINE INJ 30 MG/ML VIAL ONE (09:22)
[2022-02-07] MEDS ORDERED: LORAZEPAM INJ 2 MG/ML VIAL ONE (09:22)
[2022-02-07] MEDS: LORAZEPAM INJ 2 MG/ML VIAL IV ONE (09:28)
[2022-02-07] MEDS: KETOROLAC TROMETHAMINE INJ 30 MG/ML VIAL IV ONE (09:28)
[2022-02-07 09:36] LABS: CALCIUM, SERUM 9.7 mg/dL (8.5-10.1); POTASSIUM 5.1 mmol/L (3.5-5.1)
[2022-02-07 09:44] LABS: ALBUMIN 3.2 g/dL (3.4-5.0); BILIRUBIN,DIRECT 0.1 mg/dL (0.0-0.2); BILIRUBIN,TOTAL 0.3 mg/dL (0.2-1.0); TOTAL PROTEIN, SERUM 6.6 g/dL (6.4-8.2)
--- NOTE | 2022-02-07 09:50 | NUR ---
[facility] CALLED FOR TRANSPORT ETA 90 MINS.
--- NOTE | 2022-02-07 10:32 | NUR ---
REPORT GIVEN TO AMBULANCE STAFF
[2022-02-07 10:36] VITALS: BP 101/62
--- NOTE | 2022-02-07 10:45 | NUR ---
IV removed. Catheter intact and site benign. Pressure and 4x4 applied to site. No bleeding noted.Patient picked up by [facility] unit60 in stable conditoon, will be brought back to [facility].
== END 2022-02-07 10:48 ==
LOC: ER 08:27
DX: R42 Dizziness and giddiness (principal); I10 Essential (primary) hypertension; E11.9 Type 2 diabetes mellitus without complications; F32.A Depression, unspecified; F17.200 Nicotine dependence, unspecified, uncomplicated; Z60.2 Problems related to living alone; Z79.899 Other long term (current) drug therapy; Z79.4 Long term (current) use of insulin
CPT/HCPCS: 36415; 71045; 80048; 80076; 84484; 85025; 93005; 96361; 96374; 96375; 99285; J1885; J2060; J7030

== ENCOUNTER 2022-02-08 14:14 | Emergency (ER) | payer OTHER ==
[~2022-02-08] VITALS: Ht 182.9 cm; Wt 79.4 kg
--- NOTE | 2022-02-08 16:16 | NUR ---
TO ER BED 18, BIBS FOR VOL ADMISSION TO [facility] WITH SI PLAN TO CUT HIMSELF -HI, COOPERATIVE, BREATHING EVEN AND NON LABORED, CONNECTED TO MONITOR, AWAITING MD ORDERS
--- NOTE | 2022-02-08 16:32 | NUR ---
URINE COLLECTED AND COVID SWAB DONE AND SENT TO LAB
[2022-02-08 16:39] LABS: BILIRUBIN,URINE NEGATIVE (NEGATIVE); COLOR,URINE YELLOW (YELLOW); LEUKOCYTE ESTERASE ,URINE NEGATIVE (NEGATIVE); NITRITE, URINE NEGATIVE (NEGATIVE); PROTEIN,URINE NEGATIVE (NEGATIVE); UGLUCOSE >=1000 mg/dL (NEGATIVE); UROBILINOGEN,URINE 0.2 EU/dL (0.2)
[2022-02-08 17:17] LABS: BASOPHILS % (AUTO) 0.2 % (0.0-2.0); HEMATOCRIT 40 % (39-51); HEMOGLOBIN 13.8 g/dL (13.5-17.5); LYMPHOCYTES # (AUTO) 1.3 K/uL (0.8-4.8); LYMPHOCYTES % (AUTO) 12.8 % (20.0-44.0); MEAN CORPUSCULAR HGB CONC 34 g/dl (31.0-36.0); MEAN CORPUSCULAR VOLUME 97 fL (80-96); MONOCYTES # (AUTO) 0.5 K/uL (0.1-1.30); NEUTROPHILS # (AUTO) 8.3 K/uL (1.8-8.9); PLATELET COUNT (AUTO) 250 K/uL (150-450); RED BLOOD CELL COUNT(AUTO) 4.17 MIL/uL (4.5-6.0); WHITE BLOOD COUNT (AUTO) 10.3 K/uL (4.3-11.0)
[2022-02-08 17:52] LABS: ALANINE AMINOTRANSFERASE 25 U/L (12-78); ALBUMIN 3.5 g/dL (3.4-5.0); ALKALINE PHOSPHATASE 94 U/L (46-116); ASPARTATE AMINOTRANSFERASE 11 U/L (15-37); BILIRUBIN,TOTAL 0.3 mg/dL (0.2-1.0); CALCIUM, SERUM 9.3 mg/dL (8.5-10.1); CARBON DIOXIDE 27 mmol/L (21-32); CHLORIDE 102 mmol/L (98-107); CREATININE 1.1 mg/dL (0.6-1.3); POTASSIUM 5.6 mmol/L (3.5-5.1); SODIUM SERUM 137 mmol/L (136-145); TOTAL PROTEIN, SERUM 6.8 g/dL (6.4-8.2); UREA NITROGEN, BLOOD 25 mg/dL (7-18)
[2022-02-08 18:05] LABS: BILIRUBIN,DIRECT 0.1 mg/dL (0.0-0.2)
[2022-02-08 18:07] LABS: ACETAMINOPHEN < 10 ug/ml (10-30); ALCOHOL, BLOOD < 3 mg/dL (0-0); GLUCOSE 539 mg/dL (74-106)
[2022-02-08] MEDS ORDERED: INSULIN REGULAR, HUMAN 100 UNIT/ML 10 ML VIAL SQ ONE (18:30)
[2022-02-08] MEDS ORDERED: INSULIN REGULAR, HUMAN 100 UNIT/ML 10 ML VIAL ONE (18:51)
[2022-02-08] MEDS ORDERED: LORAZEPAM 1 MG TABLET ONE (19:25)
[2022-02-08] MEDS ORDERED: LORAZEPAM 1 MG TABLET PO ONE (19:30)
[2022-02-08 23:22] LABS: CALCIUM, SERUM 9.1 mg/dL (8.5-10.1); POTASSIUM 4.5 mmol/L (3.5-5.1)
--- NOTE | 2022-02-09 00:05 | NUR ---
FACESHEET AND CLINICALS FAXED TO [facility].
--- NOTE | 2022-02-09 02:47 | NUR ---
PATIENT WISHES TO BE DISCHARGE. HE CLAIMED THAT HE NO LONGER SUICIDAL. HE JUST WANT TO BE OUT OF THE HOSPITAL. DR. PRIEST MADE AWARE. PERSONAL BELONGINGS GIVEN TO PATIENT.
--- NOTE | 2022-02-09 02:50 | NUR ---
Patient discharged to home in stable condition. Written and verbal after care instructions given. Patient verbalizes understanding of instruction.
[2022-02-09 02:52] VITALS: BP 124/64
== END 2022-02-09 02:54 | disposition home or self-care (01) ==
LOC: ER 16:34
DX: R45.851 Suicidal ideations (principal); E11.65 Type 2 diabetes mellitus with hyperglycemia; Z79.4 Long term (current) use of insulin; E87.5 Hyperkalemia; Z91.14 Patient's other noncompliance with medication regimen; F31.9 Bipolar disorder, unspecified; I10 Essential (primary) hypertension; F20.9 Schizophrenia, unspecified; Z20.822 Contact with and (suspected) exposure to COVID-19
CPT/HCPCS: 36415; 80048 ×2; 80076; 80143; 80307; 80320; 81003; 82962 ×3; 85025; 87426; 96372; 99285; C9803; J1815; G0480

== ENCOUNTER 2022-02-09 10:36 | Emergency (ER) | payer OTHER ==
[~2022-02-09] VITALS: Ht 182.9 cm; Wt 79.4 kg
[2022-02-09 11:27] LABS: BILIRUBIN,URINE NEGATIVE (NEGATIVE); COLOR,URINE YELLOW (YELLOW); LEUKOCYTE ESTERASE ,URINE NEGATIVE (NEGATIVE); NITRITE, URINE NEGATIVE (NEGATIVE); PROTEIN,URINE 30 mg/dl (NEGATIVE); UGLUCOSE >=1000 mg/dL (NEGATIVE); UROBILINOGEN,URINE 0.2 EU/dL (0.2)
[2022-02-09 11:33] LABS: BASOPHILS % (AUTO) 0.4 % (0.0-2.0); HEMATOCRIT 40 % (39-51); HEMOGLOBIN 13.8 g/dL (13.5-17.5); LYMPHOCYTES # (AUTO) 1.9 K/uL (0.8-4.8); LYMPHOCYTES % (AUTO) 29.8 % (20.0-44.0); MEAN CORPUSCULAR HGB CONC 34 g/dl (31.0-36.0); MEAN CORPUSCULAR VOLUME 96 fL (80-96); MONOCYTES # (AUTO) 0.6 K/uL (0.1-1.30); MONOCYTES % (AUTO) 9.2 % (2.0-12.0); NEUTROPHILS # (AUTO) 3.5 K/uL (1.8-8.9); NEUTROPHILS % (AUTO) 56.6 % (43.0-81.0); PLATELET COUNT (AUTO) 239 K/uL (150-450); RED BLOOD CELL COUNT(AUTO) 4.19 MIL/uL (4.5-6.0); WHITE BLOOD COUNT (AUTO) 6.2 K/uL (4.3-11.0)
[2022-02-09 11:38] LABS: ALANINE AMINOTRANSFERASE 22 U/L (12-78); ALBUMIN 3.5 g/dL (3.4-5.0); ALKALINE PHOSPHATASE 99 U/L (46-116); ASPARTATE AMINOTRANSFERASE 11 U/L (15-37); BILIRUBIN,DIRECT 0.1 mg/dL (0.0-0.2); BILIRUBIN,TOTAL 0.3 mg/dL (0.2-1.0); CARBON DIOXIDE 29 mmol/L (21-32); CHLORIDE 100 mmol/L (98-107); POTASSIUM 4.8 mmol/L (3.5-5.1); SODIUM SERUM 135 mmol/L (136-145); UREA NITROGEN, BLOOD 22 mg/dL (7-18)
[2022-02-09 11:41] LABS: ALCOHOL, BLOOD < 3 mg/dL (0-0); GLUCOSE 413 mg/dL (74-106)
--- NOTE | 2022-02-09 11:41 | NUR ---
LAB CALLED GLUCOSE [phone]
--- NOTE | 2022-02-09 11:55 | NUR ---
THE PATIENT BIBS FOR FEELING SUICIDAL WITH A PLAN, REQUESTING VOLUNTARY ADMISSION TO PSYCH. DENIES HI. DENIES HAVING AUDITORY/VISUAL HALLUCINATIONS. IN ROOM AIR AND DENIES SOB. RESPIRATION REGULAR AND UNLABORED. DENIES SOB. WILL CONTINUE TO MONITOR THE PATIENT. SECURITY IS CALLED IN FOR WANDING.
[2022-02-09] MEDS ORDERED: INSULIN REGULAR, HUMAN 100 UNIT/ML 10 ML VIAL SQ ONE (13:00)
[2022-02-09] MEDS ORDERED: INSULIN REGULAR, HUMAN 100 UNIT/ML 10 ML VIAL ONE (13:16)
--- NOTE | 2022-02-09 13:19 | NUR ---
LUNCH TRAY PROVIDED, TOLERATED WELL
--- NOTE | 2022-02-09 14:00 | NUR ---
PATIENT STATES NOT SUICIDAL ANYMORE, NO HI, DENIES, VISUAL/AUDITORY HALLUCINATION.
[2022-02-09] MEDS ORDERED: LORAZEPAM 1 MG TABLET ONE (14:23)
[2022-02-09] MEDS ORDERED: LORAZEPAM 1 MG TABLET PO ONE (14:30)
--- NOTE | 2022-02-09 15:10 | NUR ---
Patient discharged to home in stable condition. Written and verbal after care instructions given. Patient verbalizes understanding of instruction.
[2022-02-09 17:41] VITALS: BP 127/61
== END 2022-02-09 17:42 | disposition home or self-care (01) ==
LOC: ER 10:46
DX: R45.851 Suicidal ideations (principal); F15.10 Other stimulant abuse, uncomplicated; R44.0 Auditory hallucinations; R44.1 Visual hallucinations; I10 Essential (primary) hypertension; E11.65 Type 2 diabetes mellitus with hyperglycemia; F32.A Depression, unspecified; F17.200 Nicotine dependence, unspecified, uncomplicated; Z79.4 Long term (current) use of insulin; Z60.2 Problems related to living alone; Z79.899 Other long term (current) drug therapy
CPT/HCPCS: 36415; 80048; 80076; 80320; 81003; 85025; 96372; 99285; J1815; G0480

== ENCOUNTER 2022-02-22 21:24 | Emergency (ER) | payer OTHER ==
[~2022-02-22] VITALS: Ht 177.8 cm; Wt 72.6 kg
--- NOTE | 2022-02-22 23:52 | NUR ---
URINE COLLECTED AND SENT TO LAB
--- NOTE | 2022-02-22 23:52 | NUR ---
COVID SWAB DONE AND SENT TO LAB
--- NOTE | 2022-02-23 00:19 | NUR ---
BROUGHT IN C/O SI WITH PLAN TO CUT WRIST. REQUESTING TO BE MEDICALLY CLEARED FOR VOLUNTARY PSYCHIATRIC ADMISSION. PT CHANGED INTO GOWN AND BELONGINGS REMOVED FROM ROOM. SAFETY MEASURES IN PLACE AND V/S WNL.
[2022-02-23 00:33] LABS: BASOPHILS % (AUTO) 0.3 % (0.0-2.0); EOSINOPHILS % (AUTO) 2.4 % (0.0-6.0); HEMATOCRIT 42 % (39-51); HEMOGLOBIN 14.1 g/dL (13.5-17.5); LYMPHOCYTES # (AUTO) 2.7 K/uL (0.8-4.8); LYMPHOCYTES % (AUTO) 28.3 % (20.0-44.0); MEAN CORPUSCULAR HGB CONC 34 g/dl (31.0-36.0); MEAN CORPUSCULAR VOLUME 96 fL (80-96); MONOCYTES # (AUTO) 0.6 K/uL (0.1-1.30); MONOCYTES % (AUTO) 6.2 % (2.0-12.0); NEUTROPHILS # (AUTO) 6.1 K/uL (1.8-8.9); NEUTROPHILS % (AUTO) 62.8 % (43.0-81.0); PLATELET COUNT (AUTO) 253 K/uL (150-450); RED BLOOD CELL COUNT(AUTO) 4.32 MIL/uL (4.5-6.0); WHITE BLOOD COUNT (AUTO) 9.7 K/uL (4.3-11.0)
[2022-02-23 00:49] LABS: BILIRUBIN,URINE NEGATIVE (NEGATIVE); COLOR,URINE YELLOW (YELLOW); LEUKOCYTE ESTERASE ,URINE NEGATIVE (NEGATIVE); NITRITE, URINE NEGATIVE (NEGATIVE); PROTEIN,URINE TRACE mg/dl (NEGATIVE); UGLUCOSE >=1000 mg/dL (NEGATIVE); UROBILINOGEN,URINE 0.2 EU/dL (0.2)
[2022-02-23 00:50] LABS: ALANINE AMINOTRANSFERASE 30 U/L (12-78); ALBUMIN 3.4 g/dL (3.4-5.0); ALCOHOL, BLOOD < 3 mg/dL (0-0); ALKALINE PHOSPHATASE 121 U/L (46-116); ASPARTATE AMINOTRANSFERASE 14 U/L (15-37); BILIRUBIN,DIRECT 0.1 mg/dL (0.0-0.2); BILIRUBIN,TOTAL 0.2 mg/dL (0.2-1.0); CALCIUM, SERUM 9.9 mg/dL (8.5-10.1); CARBON DIOXIDE 33 mmol/L (21-32); CHLORIDE 101 mmol/L (98-107); CREATININE 0.9 mg/dL (0.6-1.3); POTASSIUM 5.2 mmol/L (3.5-5.1); SODIUM SERUM 134 mmol/L (136-145); TOTAL PROTEIN, SERUM 6.9 g/dL (6.4-8.2); UREA NITROGEN, BLOOD 12 mg/dL (7-18)
[2022-02-23 00:53] LABS: BACTERIA,URINE None seen /HPF (None Seen); RBC,URINE 0-2 /HPF (0-2); SQUAMOUS EPITHELIAL CELL,UR Few /HPF (None Seen); WBC,URINE 0-2 /HPF (0-3)
[2022-02-23 00:53] LABS: GLUCOSE 408 mg/dL (74-106)
[2022-02-23] MEDS ORDERED: INSULIN REGULAR, HUMAN 100 UNIT/ML 10 ML VIAL IV ONE (01:00)
[2022-02-23] MEDS ORDERED: IV NS 0.9% 1,000 ML BAG IV ONE ×2 (01:00→02:30)
--- NOTE | 2022-02-23 01:14 | NUR ---
IV LINE ESTABLISHED , [id number]
[2022-02-23] MEDS ORDERED: INSULIN REGULAR, HUMAN 100 UNIT/ML 10 ML VIAL ONE (01:15)
[2022-02-23] MEDS ORDERED: LORAZEPAM 1 MG TABLET ONE (01:17)
[2022-02-23] MEDS ORDERED: LORAZEPAM 1 MG TABLET PO ONE (01:30)
[2022-02-23 01:53] LABS: ACETAMINOPHEN 0 ug/ml (10-30)
[2022-02-23] MEDS ORDERED: INSULIN REGULAR, HUMAN 100 UNIT/ML 3 ML VIAL IV ONE (02:30)
--- NOTE | 2022-02-23 04:17 | NUR ---
FACESHEET AND CLINICALS FAXED TO [facility].
--- NOTE | 2022-02-23 05:06 | NUR ---
PT ACCEPTED TO [facility] DR ROJO [phone] IS NUMBER FOR REPORT. NO RN NAME GIVEN.
--- NOTE | 2022-02-23 05:24 | NUR ---
PT WILL BE TRANSPORTED TO [facility]IA [facility] AROUND 0800.
--- NOTE | 2022-02-23 06:00 | NUR ---
IV removed. Catheter intact and site benign. Pressure and 4x4 applied to site. No bleeding noted.
--- NOTE | 2022-02-23 06:07 | NUR ---
REPORT GIVEN TO RAFFI SKEIN INSPECTOR FOR NATY
--- NOTE | 2022-02-23 07:00 | NUR ---
IV removed. Catheter intact and site benign. Pressure and 4x4 applied to site. No bleeding noted.
[2022-02-23 07:30] VITALS: BP 134/80
--- NOTE | 2022-02-23 07:30 | NUR ---
PICKED UP BY TRANSPORT IN STABLE CONDITION
== END 2022-02-23 08:39 ==
LOC: ER 21:26
DX: R45.851 Suicidal ideations (principal); F12.10 Cannabis abuse, uncomplicated; E11.65 Type 2 diabetes mellitus with hyperglycemia; Z79.4 Long term (current) use of insulin; F31.9 Bipolar disorder, unspecified; I10 Essential (primary) hypertension; F17.200 Nicotine dependence, unspecified, uncomplicated; E87.5 Hyperkalemia; Z20.822 Contact with and (suspected) exposure to COVID-19
CPT/HCPCS: 36415; 80048; 80076; 80143; 80307; 80320; 81001; 82962 ×2; 85025; 87426; 96361; 96374; 96376; 99285; C9803; J1815 ×2; J7030 ×2; G0480

== ENCOUNTER 2022-03-01 11:23 | Emergency (ER) | payer OTHER ==
[~2022-03-01] VITALS: Ht 188 cm; Wt 79.4 kg
--- NOTE | 2022-03-01 11:38 | NUR ---
REQUESTING TO BE ADMITTED TO [facility], " I WANNA CUT MY WRIST ". PT AAOX4, VSS. RR EVEN & UNLABORED. PT CALM & COOPERATIVE, NAD NOTED AT THIS TIME. SITTER AT BS & WILL CONT TO MONITOR.
--- NOTE | 2022-03-01 11:40 | NUR ---
URINE COLLECTED AND COVID SWAB DONE AND SENT TO LAB
[2022-03-01 12:07] LABS: BASOPHILS % (AUTO) 0.3 % (0.0-2.0); EOSINOPHILS % (AUTO) 3.2 % (0.0-6.0); HEMATOCRIT 38 % (39-51); LYMPHOCYTES # (AUTO) 1.3 K/uL (0.8-4.8); LYMPHOCYTES % (AUTO) 18.5 % (20.0-44.0); MEAN CORPUSCULAR HGB CONC 34 g/dl (31.0-36.0); MEAN CORPUSCULAR VOLUME 96 fL (80-96); MONOCYTES # (AUTO) 0.5 K/uL (0.1-1.30); MONOCYTES % (AUTO) 6.7 % (2.0-12.0); NEUTROPHILS # (AUTO) 5.2 K/uL (1.8-8.9); NEUTROPHILS % (AUTO) 71.3 % (43.0-81.0); PLATELET COUNT (AUTO) 240 K/uL (150-450); RED BLOOD CELL COUNT(AUTO) 3.95 MIL/uL (4.5-6.0); WHITE BLOOD COUNT (AUTO) 7.3 K/uL (4.3-11.0)
[2022-03-01 12:36] LABS: BILIRUBIN,URINE NEGATIVE (NEGATIVE); COLOR,URINE YELLOW (YELLOW); LEUKOCYTE ESTERASE ,URINE NEGATIVE (NEGATIVE); NITRITE, URINE NEGATIVE (NEGATIVE); PROTEIN,URINE 30 mg/dl (NEGATIVE); UGLUCOSE >=1000 mg/dL (NEGATIVE); UROBILINOGEN,URINE 0.2 EU/dL (0.2)
[2022-03-01 12:49] LABS: ALANINE AMINOTRANSFERASE 30 U/L (12-78); ALBUMIN 3.1 g/dL (3.4-5.0); ALCOHOL, BLOOD < 3 mg/dL (0-0); ALKALINE PHOSPHATASE 93 U/L (46-116); ASPARTATE AMINOTRANSFERASE 17 U/L (15-37); BILIRUBIN,DIRECT 0.1 mg/dL (0.0-0.2); BILIRUBIN,TOTAL 0.2 mg/dL (0.2-1.0); CALCIUM, SERUM 8.9 mg/dL (8.5-10.1); CARBON DIOXIDE 27 mmol/L (21-32); CHLORIDE 100 mmol/L (98-107); POTASSIUM 4.7 mmol/L (3.5-5.1); SODIUM SERUM 134 mmol/L (136-145); TOTAL PROTEIN, SERUM 6.5 g/dL (6.4-8.2); UREA NITROGEN, BLOOD 23 mg/dL (7-18)
[2022-03-01 12:52] LABS: ACETAMINOPHEN 0 ug/ml (10-30); GLUCOSE 471 mg/dL (74-106)
[2022-03-01] MEDS ORDERED: INSULIN REGULAR, HUMAN 100 UNIT/ML 10 ML VIAL IV ONE ×2 (13:00→23:30)
[2022-03-01] MEDS ORDERED: METFORMIN XR 500 MG TAB.SR.24H PO SCH (13:00)
[2022-03-01] MEDS ORDERED: IV NS 0.9% 1,000 ML BAG IV ONE ×2 (13:00)
[2022-03-01] MEDS ORDERED: INSULIN REGULAR, HUMAN 100 UNIT/ML 10 ML VIAL ONE (13:05)
[2022-03-01] MEDS ORDERED: METFORMIN XR 500 MG TAB.SR.24H PO ONE (13:05)
[2022-03-01 13:11] LABS: BACTERIA,URINE None seen /HPF (None Seen); RBC,URINE 0-2 /HPF (0-2); SQUAMOUS EPITHELIAL CELL,UR Few /HPF (None Seen); WBC,URINE 0-2 /HPF (0-3)
--- NOTE | 2022-03-01 14:37 | NUR ---
Faxed clinicals to [facility] [fax: [phone]]. Please fax over medical clearance note once ready.
--- NOTE | 2022-03-01 15:18 | NUR ---
VERBAL ORDER FOR 1MG ATIVAN PO FROM DR HARRIS
[2022-03-01] MEDS ORDERED: LORAZEPAM 1 MG TABLET ONE (15:22)
[2022-03-01] MEDS ORDERED: LORAZEPAM 1 MG TABLET PO ONE (15:30)
--- NOTE | 2022-03-01 21:23 | NUR ---
[facility], SPOKE TO KRIS MCCARTNEY AWAITING FEEDBACK FROM [employer] [employer] [facility] [employer] SALESPERSON
--- NOTE | 2022-03-01 23:00 | NUR ---
CALLED [facility] FOR UPDATE, WILL CALL BACK
--- NOTE | 2022-03-02 | NUR ---
PATIENT STATES HE IS NO LONGER SUICIDAL AND NO LONGER WANTS TO CONTINUE WITH VOLUNTARY ADMISSION.
[2022-03-02 00:01] VITALS: BP 122/70
== END 2022-03-02 00:08 | disposition home or self-care (01) ==
LOC: ER 11:30
DX: R45.851 Suicidal ideations (principal); E11.65 Type 2 diabetes mellitus with hyperglycemia; Z79.4 Long term (current) use of insulin; F31.9 Bipolar disorder, unspecified; I10 Essential (primary) hypertension; Z20.822 Contact with and (suspected) exposure to COVID-19
CPT/HCPCS: 99285; 96374; 96361; 85025; 80048; 80076; 81001; 36415; 82962 ×4; 87426; 80143; 80320; 80307; J1815; J7030; C9803; G0480